=== PATIENT | female | born 1965 | race Asian ===

== ENCOUNTER 2017-02-07 13:55 | Emergency (ER) | payer OTHER ==
[~2017-02-07] VITALS: Ht 165.1 cm; Wt 73.5 kg
[2017-02-07 15:40] LABS: CARBON DIOXIDE 25.8 mmol/L (21-32); CHLORIDE SERUM 106 mmol/L (98-107); CREATININE SERUM 0.9 mg/dL (0.6-1.0); GFR1 > 60 mL/min; GLUCOSE SERUM 94 mg/dL (74-106); POTASSIUM SERUM 4.3 mmol/L (3.5-5.1); SODIUM SERUM 142 mmol/L (136-145)
[2017-02-07 15:41] LABS: BASOPHIL % 0.4 % (0-2); PLATELET COUNT 292 x10^3mcL (130-400)
[2017-02-07 15:46] LABS: ALBUMIN 3.7 g/dL (3.4-5.0); ALKALINE PHOSPHATASE 52 U/L (46-116); ALT/SGPT 16 U/L (14-59); AST/SGOT 12 U/L (15-37); BILIRUBIN TOTAL 0.3 mg/dL (0.20-1.00); TOTAL PROTEIN, SERUM 7.9 g/dL (6.4-8.2)
[2017-02-07 15:54] LABS: RED CELL DISTRIBUTION WIDTH 15.9 % (11.5-14.5)
[2017-02-07 17:21] VITALS: BP 150/81
== END 2017-02-07 17:21 | disposition home or self-care (01) ==
LOC: ED 13:55
PROVIDERS: Emergency Medicine
DX: I10 Essential (primary) hypertension (principal); R60.0 Localized edema
CPT/HCPCS: 36415

== ENCOUNTER 2017-06-16 13:24 | Emergency (ER) | payer OTHER ==
[~2017-06-16] VITALS: Ht 175.3 cm; Wt 67.6 kg
[2017-06-16 16:52] VITALS: BP 140/77
== END 2017-06-16 16:52 | disposition home or self-care (01) ==
LOC: ED 13:24
DX: S16.1XXA Strain of muscle, fascia and tendon at neck level, initial encounter (principal); S29.012A Strain of muscle and tendon of back wall of thorax, initial encounter; X58.XXXA Exposure to other specified factors, initial encounter; Y93.89 Activity, other specified; Y92.89 Other specified places as the place of occurrence of the external cause; Y99.8 Other external cause status
CPT/HCPCS: 72072

== ENCOUNTER 2018-02-12 13:50 | Emergency (ER) | payer OTHER ==
[~2018-02-12] VITALS: Ht 165.1 cm; Wt 69.8 kg
[2018-02-12 14:05] VITALS: Ht 165.1 cm; Wt 69.8 kg
[2018-02-12 17:09] VITALS: BP 121/79
== END 2018-02-12 17:09 | disposition home or self-care (01) ==
LOC: ED 13:50
DX: S40.012A Contusion of left shoulder, initial encounter (principal); S90.32XA Contusion of left foot, initial encounter; I10 Essential (primary) hypertension; W17.89XA Other fall from one level to another, initial encounter; Y93.89 Activity, other specified; Y92.89 Other specified places as the place of occurrence of the external cause; Y99.8 Other external cause status

== ENCOUNTER 2020-10-25 15:13 | Emergency (ER) | payer OTHER ==
[~2020-10-25] VITALS: Ht 165.1 cm; Wt 68.0 kg
[2020-10-25 15:17] VITALS: Ht 165.1 cm; Wt 68.0 kg
[2020-10-25 16:01] LABS: BASOPHIL % 1.6 % (0.2-1.3); PLATELET COUNT 259 x10^3mcL (179-408); RED CELL DISTRIBUTION WIDTH 25.7 % (12.3-17.7)
[2020-10-25 16:15] LABS: CALCIUM 9.2 mg/dL (8.5-10.1); CARBON DIOXIDE 26.8 mmol/L (21-32); CHLORIDE SERUM 105 mmol/L (98-107); CREATININE SERUM 0.8 mg/dL (0.6-1.0); GFR1 > 60 mL/min; GLUCOSE SERUM 110 mg/dL (74-106); POTASSIUM SERUM 3.9 mmol/L (3.5-5.1); SODIUM SERUM 142 mmol/L (136-145)
[2020-10-25 16:19] LABS: ALBUMIN 3.5 g/dL (3.4-5.0); ALKALINE PHOSPHATASE 57 U/L (46-116); ALT/SGPT 22 U/L (14-59); AST/SGOT 15 U/L (15-37); BILIRUBIN TOTAL 0.24 mg/dL (0.20-1.00); CHOLESTEROL 169 mg/dL (<200); HDL CHOLESTEROL 65 mg/dL (40-60); MAGNESIUM 1.8 mg/dL (1.8-2.4); TOTAL PROTEIN, SERUM 7.7 g/dL (6.4-8.2)
[2020-10-25 16:21] LABS: rbc morphology (normal/abnorm) ABNORMAL (NORMAL)
[2020-10-25 16:22] LABS: ovalocyte/elliptocyte 1+
[2020-10-25] MEDS ORDERED: MOTION SICKNESS25 M2 PO (18:00)
[2020-10-25] MEDS ORDERED: MULTIPLE VITAMI1 T13 PO (18:00)
[2020-10-25] MEDS ORDERED: ZOF4 PO (18:00)
[2020-10-25 18:11] VITALS: BP 139/77
== END 2020-10-25 18:12 | disposition home or self-care (01) ==
LOC: ED 15:13
PROVIDERS: Emergency Medicine
DX: R53.1 Weakness (principal); R42 Dizziness and giddiness; I10 Essential (primary) hypertension; E78.00 Pure hypercholesterolemia, unspecified
CPT/HCPCS: J2405; J8597